=== PATIENT | male | born 1950 | race African-American/Black ===

== ENCOUNTER 2016-07-24 20:03 | Inpatient (IN) | payer OTHER, MEDICARE ==
[~2016-07-24] VITALS: Ht 177.8 cm; Wt 87.3 kg
[~2016-07-24 20:03] MED LIST: ACTONEL35 MG PO; ALENDRONATE SOD70 MG PO; ALEVE220 MG PO; AMIODARONE HCL200 MG PO; ASPIR 8181 M1 PO; Aspirin E.C. PO; BACTRIM,SEPT1 TABLET PO; CALCITRIOL0.25 MC1 PO; CALCITRIOL0.25 MCG PO; CALCIUM CITRAT200 MG PO; CALCIUM-MAGNES1 EA10 PO; CEFTIN500 MG PO; CYANOCOBALAM1000 MCG PO; CYMBALTA60 MG PO; Cipro PO; Cordarone, Pacerone PO; Cymbalta PO; DAILY MULTIPLE1 EACH PO; HYDROCHLOROTHIA25 MG PO; HYDROCODON-ACE1 EAC7 PO; K-DUR20 MEQ PO; K-Dur PO; KLOR-CON M2020 MEQ PO; KLOR-CON20 MEQ PO; LEVAQUIN500 MG PO; LOVENOX40 MG/0.4 SC; LYRICA50 MG PO; Levaquin PO; PLAVIX75 MG PO; PREDNISONE20 MG PO; RYTHMOL225 MG PO; TAMSULOSIN HCL0.4 MG PO; TYLENOL WITH C1 EACH PO; VIBRAMYCIN100 MG PO; VITAMIN A AND D PO
[2016-07-24 20:50] LABS: ADD MIUA? YES; BILIRUBIN NEGATIVE; BLOOD MODERATE; COLOR AMBER ((YELLOW)); GLUCOSE (STRIP) NEGATIVE; KETONES NEGATIVE; LEUKOCYTES SMALL; NITRITE POSITIVE; PROTEIN (STRIP) 100; SPECIFIC GRAVITY 1.013 (1.000-1.030)
[2016-07-24 21:21] LABS: BACTERIA 2+ /HPF; CASTS NONE SEEN /LPF; CRYSTALS NONE SEEN; EPITHELIAL CELLS RARE /HPF; MUCUS NONE SEEN /LPF; UCUL ADDED? YES; WHITE BLOOD CELLS TNTC /HPF (0-5)
[2016-07-24 22:17] LABS: PLATELET COUNT 68 K/uL (156-360)
[2016-07-24 22:20] LABS: CHLORIDE 113 mEq/L (99-109); SODIUM 143 mEq/L (136-147)
[2016-07-24 22:22] LABS: GLUCOSE 87 mg/dL (70-99)
[2016-07-24 22:23] LABS: ANION GAP 9 MEQ/L (2-14)
[2016-07-24 22:24] LABS: TOTAL BILIRUBIN 1.6 mg/dL (0.0-1.0)
[2016-07-24 22:25] LABS: ALKALINE PHOSPHATASE 298 IU/L (3-129)
[2016-07-24 22:26] LABS: GFR ESTIMATE (CALCULATED) > 59 mL/min/; POTASSIUM 2.3 mEq/L (3.7-5.4)
[2016-07-24 22:27] LABS: UREA NITROGEN (BUN) 21 mg/dL (9-23)
[2016-07-24 22:55] LABS: HEMATOCRIT 25.1 % (38.0-50.0); MCH 34.1 PG (29.0-34.0); MCHC 30.7 G/DL (30.0-36.0); MCV 111.1 FL (86-99); RBC DIS.WIDTH-CV 15.4 % (11.8-14.6); RBC DIS.WIDTH-SD 61.6 % (39-53); RED BLOOD COUNT 2.26 M/uL (4.00-5.50); WHITE BLOOD COUNT 3.7 K/uL (4.1-10.2)
[2016-07-25] VITALS (14 sets, daily range): BP systolic 70–93; BP diastolic 50–60
[2016-07-25] MEDS ORDERED: PYRIDIUM100 MG PO (05:18)
[2016-07-25] MEDS ORDERED: NITROFURANTOIN100 MG PO (05:19)
[2016-07-25 07:51] LABS: POINT-OF-CARE METER ID UU13113781; POINT-OF-CARE USER ID NUTSLF44
[2016-07-25 11:09] LABS: ANION GAP 7 MEQ/L (2-14); CHLORIDE 115 MEQ/L (99-109); SAMPLE HEMOLYSIS CHECK 0; SAMPLE ICTERIC CHECK 0; SAMPLE LIPEMIA CHECK 0; SODIUM 141 MEQ/L (136-147)
[2016-07-25 11:10] LABS: POTASSIUM 2.9 MEQ/L (3.7-5.4)
[2016-07-25 11:14] LABS: GFR ESTIMATE (CALCULATED) > 59 mL/min/; GLUCOSE 80 mg/dL (70-99); UREA NITROGEN (BUN) 18 mg/dL (9-23)
[2016-07-25 11:46] LABS: POINT-OF-CARE METER ID UU13113781; POINT-OF-CARE USER ID NUTSLF44
[2016-07-25 12:16] LABS: EOSINOPHIL (%) 1.5 % (0-5); HEMATOCRIT 22.9 % (38.0-50.0); IMMATURE GRANULOCYTE (%) 0.4 % (0.0-0.7); INSTRUMENT ABS NEUTROPHIL CT 1.8 K/uL; LYMPHOCYTE COUNT 0.6 K/uL (1.0-2.8); MCH 33.5 PG (29.0-34.0); MCHC 29.7 G/DL (30.0-36.0); MCV 112.8 FL (86-99); MEAN PLAT.VOLUME 11.5 uM^3 (9.0-12.4); MONOCYTE (%) 5.6 % (3-12); MONOCYTE COUNT 0.2 K/uL (0-0.8); NEUTROPHIL (%) 69.2 % (45-76); NEUTROPHIL COUNT 1.8 K/uL (1.8-6.4); PLATELET COUNT 52 K/uL (156-360); RBC DIS.WIDTH-CV 15.6 % (11.8-14.6); RBC DIS.WIDTH-SD 64.8 % (39-53); RED BLOOD COUNT 2.03 M/uL (4.00-5.50); WHITE BLOOD COUNT 2.7 K/uL (4.1-10.2)
[2016-07-25 16:52] LABS: POINT-OF-CARE USER ID NUTSLF44
[2016-07-25 21:02] LABS: POINT-OF-CARE METER ID UU13113781; POINT-OF-CARE USER ID ENVMNS
[2016-07-26 04:00] VITALS: BP 85/51
[2016-07-26 06:53] LABS: EOSINOPHIL (%) 1.2 % (0-5); HEMATOCRIT 27.1 % (38.0-50.0); INSTRUMENT ABS NEUTROPHIL CT 1.6 K/uL; LYMPHOCYTE COUNT 0.6 K/uL (1.0-2.8); MCH 33.1 PG (29.0-34.0); MCHC 30.3 G/DL (30.0-36.0); MCV 109.3 FL (86-99); MEAN PLAT.VOLUME 11.1 uM^3 (9.0-12.4); MONOCYTE (%) 7.3 % (3-12); MONOCYTE COUNT 0.2 K/uL (0-0.8); NEUTROPHIL (%) 66.3 % (45-76); NEUTROPHIL COUNT 1.6 K/uL (1.8-6.4); PLATELET COUNT 57 K/uL (156-360); RBC DIS.WIDTH-CV 18.9 % (11.8-14.6); RBC DIS.WIDTH-SD 75.1 % (39-53); WHITE BLOOD COUNT 2.5 K/uL (4.1-10.2)
[2016-07-26 06:57] LABS: RED BLOOD COUNT 2.48 M/uL (4.00-5.50)
[2016-07-26 08:30] VITALS: BP 92/65
[2016-07-26 08:34] LABS: POINT-OF-CARE USER ID NUTSLF44
[2016-07-26 09:38] LABS: CHLORIDE 119 mEq/L (99-109); POTASSIUM 3.4 mEq/L (3.7-5.4); SODIUM 142 mEq/L (136-147)
[2016-07-26 09:40] LABS: GLUCOSE 64 mg/dL (70-99)
[2016-07-26 09:41] LABS: ANION GAP 6 MEQ/L (2-14)
[2016-07-26 09:44] LABS: GFR ESTIMATE (CALCULATED) > 59 mL/min/
[2016-07-26 09:45] LABS: UREA NITROGEN (BUN) 18 mg/dL (9-23)
[2016-07-26 11:41] LABS: POINT-OF-CARE USER ID NUTSLF44
[2016-07-26 12:00] VITALS: BP 89/65
[2016-07-26 17:00] LABS: POINT-OF-CARE METER ID UU13113781; POINT-OF-CARE USER ID NUTSLF44
[2016-07-26 18:12] VITALS: BP 102/64
[2016-07-26 19:10] VITALS: BP 80/54
[2016-07-27 00:26] VITALS: BP 88/53
[2016-07-27 04:00] VITALS: BP 88/60
[2016-07-27 07:45] VITALS: BP 100/66
[2016-07-27 07:52] LABS: EOSINOPHIL (%) 1.7 % (0-5); HEMATOCRIT 28.3 % (38.0-50.0); IMMATURE GRANULOCYTE (%) 0.4 % (0.0-0.7); INSTRUMENT ABS NEUTROPHIL CT 1.5 K/uL; LYMPHOCYTE COUNT 0.6 K/uL (1.0-2.8); MCH 33.2 PG (29.0-34.0); MCHC 30.4 G/DL (30.0-36.0); MCV 109.3 FL (86-99); MEAN PLAT.VOLUME 10.5 uM^3 (9.0-12.4); MONOCYTE (%) 5.6 % (3-12); MONOCYTE COUNT 0.1 K/uL (0-0.8); NEUTROPHIL (%) 65.4 % (45-76); NEUTROPHIL COUNT 1.5 K/uL (1.8-6.4); PLATELET COUNT 51 K/uL (156-360); RBC DIS.WIDTH-CV 18.3 % (11.8-14.6); RBC DIS.WIDTH-SD 74.2 % (39-53); RED BLOOD COUNT 2.59 M/uL (4.00-5.50); WHITE BLOOD COUNT 2.3 K/uL (4.1-10.2)
[2016-07-27 08:06] LABS: ANION GAP 4 MEQ/L (2-14); CHLORIDE 119 MEQ/L (99-109); GFR ESTIMATE (CALCULATED) > 59 mL/min/; GLUCOSE 73 mg/dL (70-99); SAMPLE HEMOLYSIS CHECK 0; SAMPLE ICTERIC CHECK 0; SAMPLE LIPEMIA CHECK 0; SODIUM 142 MEQ/L (136-147); UREA NITROGEN (BUN) 16 mg/dL (9-23)
[2016-07-27 11:23] VITALS: BP 81/52
[2016-07-27 16:28] VITALS: BP 92/53
[2016-07-27 19:15] VITALS: BP 84/52
[2016-07-28] VITALS (8 sets, daily range): BP systolic 83–119; BP diastolic 51–73
[2016-07-28 05:52] LABS: EOSINOPHIL (%) 1.7 % (0-5); HEMATOCRIT 27.8 % (38.0-50.0); INSTRUMENT ABS NEUTROPHIL CT 1.5 K/uL; LYMPHOCYTE COUNT 0.6 K/uL (1.0-2.8); MCH 32.4 PG (29.0-34.0); MCHC 29.5 G/DL (30.0-36.0); MCV 109.9 FL (86-99); MEAN PLAT.VOLUME 11.3 uM^3 (9.0-12.4); MONOCYTE (%) 5.2 % (3-12); MONOCYTE COUNT 0.1 K/uL (0-0.8); NEUTROPHIL (%) 65.9 % (45-76); NEUTROPHIL COUNT 1.5 K/uL (1.8-6.4); PLATELET COUNT 53 K/uL (156-360); RBC DIS.WIDTH-CV 17.5 % (11.8-14.6); RBC DIS.WIDTH-SD 71.9 % (39-53); RED BLOOD COUNT 2.53 M/uL (4.00-5.50); WHITE BLOOD COUNT 2.3 K/uL (4.1-10.2)
[2016-07-28 06:28] LABS: ANION GAP 6 MEQ/L (2-14); CHLORIDE 119 MEQ/L (99-109); GFR ESTIMATE (CALCULATED) > 59 mL/min/; GLUCOSE 72 mg/dL (70-99); POTASSIUM 4.2 MEQ/L (3.7-5.4); SAMPLE HEMOLYSIS CHECK 0; SAMPLE ICTERIC CHECK 0; SAMPLE LIPEMIA CHECK 0; SODIUM 142 MEQ/L (136-147); UREA NITROGEN (BUN) 16 mg/dL (9-23)
== END 2016-07-28 19:26 | disposition home or self-care (01) | DRG 690 ==
LOC: EME 20:03 → 4EAST 07-25 02:35 → EDOF 07-25 02:35 → 4EAST 07-25 04:17
PROVIDERS: Family Medicine Sports Medicine; Physician Assistant; Specialist
PROC: 30233R1 Transfusion of Nonautologous Platelets into Peripheral Vein, Percutaneous Approach (ICD-10-PCS; principal; 2016-07-25)
PROC: 30233N1 Transfusion of Nonautologous Red Blood Cells into Peripheral Vein, Percutaneous Approach (ICD-10-PCS; principal; 2016-07-25)
DX: N39.0 Urinary tract infection, site not specified (principal); D61.818 Other pancytopenia; E87.6 Hypokalemia; R31.9 Hematuria, unspecified; K21.9 Gastro-esophageal reflux disease without esophagitis; I49.5 Sick sinus syndrome; I25.10 Atherosclerotic heart disease of native coronary artery without angina pectoris; I48.2 Chronic atrial fibrillation; F32.9 Major depressive disorder, single episode, unspecified; E66.01 Morbid (severe) obesity due to excess calories; E11.9 Type 2 diabetes mellitus without complications; I10 Essential (primary) hypertension; N40.0 Benign prostatic hyperplasia without lower urinary tract symptoms; I95.9 Hypotension, unspecified; D69.6 Thrombocytopenia, unspecified; D72.819 Decreased white blood cell count, unspecified; E83.51 Hypocalcemia; Z98.84 Bariatric surgery status; Z87.891 Personal history of nicotine dependence; Z88.0 Allergy status to penicillin; Z88.1 Allergy status to other antibiotic agents; Z95.0 Presence of cardiac pacemaker
CPT/HCPCS: 74177; 80048; 80053; 80202; 81003; 82948; 83605; 85025; 85027; 85049; 86850; 86900; 86901; 86920; 87040; 87077; 87086; 87186; 93005; 99281; 99285; J0696; J3370; J3480; J7030; J7050; P9016; P9035

== ENCOUNTER → 2016-10-08 | Outpatient (CLI) | payer OTHER, MEDICARE ==
[~2016-10-08] VITALS: Ht 175.3 cm; Wt 83.9 kg
[~2016-10-08] MED LIST changes: +ALDACTONE25 MG PO; +LASIX20 MG PO; +NITROFURANTOIN100 MG PO; +PYRIDIUM100 MG PO
[2016-10-08 14:54] LABS: HEMATOCRIT 27.7 % (38.0-50.0); MCH 32.5 PG (29.0-34.0); MCHC 31.4 G/DL (30.0-36.0); MCV 103.4 FL (86-99); MEAN PLAT.VOLUME 10.5 uM^3 (9.0-12.4); PLATELET COUNT 57 K/uL (156-360); RBC DIS.WIDTH-SD 57.1 % (39-53); RED BLOOD COUNT 2.68 M/uL (4.00-5.50); WHITE BLOOD COUNT 2.4 K/uL (4.1-10.2)
== END | disposition home or self-care (01) ==
LOC: AMB 13:59
PROVIDERS: Anesthesiology
DX: K22.8 Other specified diseases of esophagus (principal); I85.10 Secondary esophageal varices without bleeding; K29.70 Gastritis, unspecified, without bleeding; K75.81 Nonalcoholic steatohepatitis (NASH); K74.69 Other cirrhosis of liver; D69.6 Thrombocytopenia, unspecified; D64.9 Anemia, unspecified; I10 Essential (primary) hypertension; Z86.19 Personal history of other infectious and parasitic diseases; Z98.84 Bariatric surgery status; E66.3 Overweight; Z68.26 Body mass index [BMI] 26.0-26.9, adult; Z87.891 Personal history of nicotine dependence; Z95.0 Presence of cardiac pacemaker; Z88.0 Allergy status to penicillin
CPT/HCPCS: 84132; 85027; J3010

== ENCOUNTER 2016-10-19 17:09 | Emergency (ER) | payer OTHER, MEDICARE ==
[~2016-10-19] VITALS: Ht 177.8 cm; Wt 88.4 kg
[2016-10-19 17:56] LABS: ADD MIUA? YES; BILIRUBIN NEGATIVE; BLOOD MODERATE; COLOR YELLOW ((YELLOW)); GLUCOSE (STRIP) NEGATIVE; KETONES NEGATIVE; LEUKOCYTES LARGE; NITRITE POSITIVE; PROTEIN (STRIP) 30; SPECIFIC GRAVITY 1.011 (1.000-1.030); UROBILINOGEN 0.2 MG/DL (0.2-1.0)
[2016-10-19 18:36] LABS: BACTERIA 2+ /HPF; EPITHELIAL CELLS NONE SEEN /HPF; MUCUS NONE SEEN /LPF; RED BLOOD CELLS RARE /HPF (0-5); UCUL ADDED? YES
[2016-10-19 20:15] LABS: HEMATOCRIT 28.7 % (38.0-50.0); MCV 103.2 FL (86-99); RBC DIS.WIDTH-CV 13.9 % (11.8-14.6); RBC DIS.WIDTH-SD 53.1 % (39-53); RED BLOOD COUNT 2.78 M/uL (4.00-5.50)
[2016-10-19 20:24] LABS: CHLORIDE 118 mEq/L (99-109); POTASSIUM 3.4 mEq/L (3.7-5.4); SODIUM 142 mEq/L (136-147)
[2016-10-19 20:26] LABS: GLUCOSE 76 mg/dL (70-99)
[2016-10-19 20:28] LABS: ANION GAP 2 MEQ/L (2-14); TOTAL BILIRUBIN 0.7 mg/dL (0.0-1.0)
[2016-10-19 20:30] LABS: ALKALINE PHOSPHATASE 236 IU/L (3-129); GFR ESTIMATE (CALCULATED) > 59 mL/min/
[2016-10-19 20:31] LABS: UREA NITROGEN (BUN) 12 mg/dL (9-23)
[2016-10-19 21:01] LABS: IMM.PLATELET FRACTION 5.2 (1-7); MEAN PLAT.VOLUME 11.5 uM^3 (9.0-12.4); PLAT.SUFFICIENCY VERY DECREASED; PLATELET COUNT 45 K/uL (156-360)
[2016-10-19] MEDS ORDERED: BACTRIM,SEPT1 TABLET PO (22:36)
[2016-10-19 23:08] VITALS: BP 96/64
== END 2016-10-19 23:07 | disposition home or self-care (01) ==
LOC: EME 17:09
PROVIDERS: Physician Assistant
DX: N49.2 Inflammatory disorders of scrotum (principal); N39.0 Urinary tract infection, site not specified; D61.818 Other pancytopenia; M81.0 Age-related osteoporosis without current pathological fracture; Z87.442 Personal history of urinary calculi; Z88.0 Allergy status to penicillin; Z87.891 Personal history of nicotine dependence; Z98.84 Bariatric surgery status
CPT/HCPCS: 76870; 80053; 81003; 85027; 87086; 99281; 99284; J0696

== ENCOUNTER 2017-03-29 22:44 | Inpatient (IN) | payer OTHER, MEDICARE ==
[~2017-03-29] VITALS: Ht 177.8 cm; Wt 87.5 kg
[2017-03-29 23:12] LABS: HEMATOCRIT 24.6 % (38.0-50.0); MCH 32.5 PG (29.0-34.0); MCHC 31.3 G/DL (30.0-36.0); MCV 103.8 FL (86-99); RBC DIS.WIDTH-CV 14.9 % (11.8-14.6); RBC DIS.WIDTH-SD 55.8 % (39-53); RED BLOOD COUNT 2.37 M/uL (4.00-5.50); WHITE BLOOD COUNT 3.1 K/uL (4.1-10.2)
[2017-03-29 23:23] LABS: CHLORIDE 115 mEq/L (99-109); POTASSIUM 3.4 mEq/L (3.7-5.4); SODIUM 141 mEq/L (136-147)
[2017-03-29 23:26] LABS: GLUCOSE 91 mg/dL (70-99)
[2017-03-29 23:27] LABS: ANION GAP 8 MEQ/L (2-14)
[2017-03-29 23:28] LABS: TOTAL BILIRUBIN 1.3 mg/dL (0.0-1.0)
[2017-03-29 23:29] LABS: ALKALINE PHOSPHATASE 249 IU/L (3-129); GFR ESTIMATE (CALCULATED) > 59 mL/min/
[2017-03-29 23:30] LABS: UREA NITROGEN (BUN) 15 mg/dL (9-23)
[2017-03-29 23:48] LABS: LIPASE 45 U/L (1.0-51.0)
[2017-03-30] VITALS (12 sets, daily range): BP systolic 79–108; BP diastolic 52–67
[2017-03-30 00:55] LABS: IMM.PLATELET FRACTION 5.4 (1-7); MEAN PLAT.VOLUME 11.5 uM^3 (9.0-12.4); PLAT.SUFFICIENCY DECREASED; PLATELET COUNT 40 K/uL (156-360)
[2017-03-30 01:34] LABS: ADD MIUA? YES; BILIRUBIN NEGATIVE; BLOOD MODERATE; COLOR YELLOW ((YELLOW)); GLUCOSE (STRIP) NEGATIVE; KETONES NEGATIVE; LEUKOCYTES LARGE; NITRITE POSITIVE; PROTEIN (STRIP) NEGATIVE; UROBILINOGEN 0.2 MG/DL (0.2-1.0)
[2017-03-30 01:47] LABS: BACTERIA 1+ /HPF; EPITHELIAL CELLS RARE /HPF; MUCUS TRACE /LPF; UCUL ADDED? YES; WHITE BLOOD CELLS 15-20 /HPF (0-5)
[2017-03-30] MEDS ORDERED: FINASTERIDE5 MG PO (11:31)
[2017-03-30] MEDS ORDERED: TRAMADOL HCL50 MG PO (11:33)
[2017-03-30] MEDS ORDERED: CALCIUM + D PO (11:34)
[2017-03-30 17:52] LABS: C DIFF TOXIN NEGATIVE (NEGATIVE)
[2017-03-30 17:55] LABS: PROBE CHECK PASS; SPECIMEN PROCESSING CONTROL PASS
[2017-03-30 19:47] LABS: HEMATOCRIT 25.5 % (38.0-50.0); IMM.RETIC FRACTION 14.8 % (3-19); MCH 31.9 PG (29.0-34.0); MCHC 31.4 G/DL (30.0-36.0); MCV 101.6 FL (86-99); RBC DIS.WIDTH-CV 17.6 % (11.8-14.6); RBC DIS.WIDTH-SD 66.1 % (39-53); RED BLOOD COUNT 2.51 M/uL (4.00-5.50); RETIC HGB EQUIVALENT 31.9 (28-36); WHITE BLOOD COUNT 2.3 K/uL (4.1-10.2)
[2017-03-30 19:58] LABS: INTER. NORMALIZED RATIO 1.6; PROTHROMBIN TIME 18.6 SEC (10.2-12.9)
[2017-03-30 20:01] LABS: PTT 31.4 SEC (25-37)
[2017-03-30 20:12] LABS: TROP-I INTERPRETATION NEGATIVE; TROPONIN-I 0.02 ng/mL (0.0-0.30)
[2017-03-30 20:17] LABS: IMM.PLATELET FRACTION 3.8 (1-7); MEAN PLAT.VOLUME 11.6 uM^3 (9.0-12.4); PLAT.SUFFICIENCY DECREASED; PLATELET COUNT 37 K/uL (156-360)
[2017-03-30 20:30] LABS: FERRITIN 48 NG/ML (22-322)
[2017-03-30 21:27] LABS: CREATINE KINASE 82 IU/L (1-294); IRON 45 MCG/DL (35-150)
[2017-03-31] VITALS (15 sets, daily range): BP systolic 63–120; BP diastolic 40–67
[2017-03-31 07:13] LABS: EOSINOPHIL (%) 1.1 % (0-5); HEMATOCRIT 25.1 % (38.0-50.0); IMMATURE GRANULOCYTE (%) 0.6 % (0.0-0.7); INSTRUMENT ABS NEUTROPHIL CT 1.2 K/uL; LYMPHOCYTE COUNT 0.4 K/uL (1.0-2.8); MCH 31.6 PG (29.0-34.0); MCHC 31.5 G/DL (30.0-36.0); MCV 100.4 FL (86-99); MONOCYTE (%) 11.2 % (3-12); MONOCYTE COUNT 0.2 K/uL (0-0.8); NEUTROPHIL (%) 65.7 % (45-76); NEUTROPHIL COUNT 1.2 K/uL (1.8-6.4); RBC DIS.WIDTH-CV 17.4 % (11.8-14.6); RBC DIS.WIDTH-SD 65.2 % (39-53); WHITE BLOOD COUNT 1.8 K/uL (4.1-10.2)
[2017-03-31 07:30] LABS: ANION GAP 6 MEQ/L (2-14); CHLORIDE 115 MEQ/L (99-109); GFR ESTIMATE (CALCULATED) > 59 mL/min/; GLUCOSE 78 mg/dL (70-99); POTASSIUM 3.3 MEQ/L (3.7-5.4); SAMPLE HEMOLYSIS CHECK 0; SAMPLE ICTERIC CHECK 0; SAMPLE LIPEMIA CHECK 0; SODIUM 140 MEQ/L (136-147); UREA NITROGEN (BUN) 15 mg/dL (9-23)
[2017-03-31 07:32] LABS: IMM.PLATELET FRACTION 4.4 (1-7); PLAT.SUFFICIENCY VERY DECREASED; PLATELET COUNT 37 K/uL (156-360)
[2017-03-31 17:40] LABS: HEMATOCRIT 28.4 % (38.0-50.0); MCH 32.2 PG (29.0-34.0); MCV 100.4 FL (86-99); NRBC (%) 1.3 /100 WBC (0-0); RBC DIS.WIDTH-CV 17.5 % (11.8-14.6); RBC DIS.WIDTH-SD 64.8 % (39-53); RED BLOOD COUNT 2.83 M/uL (4.00-5.50); WHITE BLOOD COUNT 2.2 K/uL (4.1-10.2)
[2017-03-31 17:51] LABS: ANION GAP 3 MEQ/L (2-14); CHLORIDE 116 MEQ/L (99-109); POTASSIUM 3.6 MEQ/L (3.7-5.4); SAMPLE HEMOLYSIS CHECK 0; SAMPLE ICTERIC CHECK 0; SAMPLE LIPEMIA CHECK 0; SODIUM 140 MEQ/L (136-147)
[2017-03-31 17:57] LABS: GFR ESTIMATE (CALCULATED) > 59 mL/min/; GLUCOSE 78 mg/dL (70-99); UREA NITROGEN (BUN) 13 mg/dL (9-23)
[2017-03-31 18:06] LABS: BASE EXCESS -8.1 mEq/L (-3 to +3); BICARBONATE 16.7 mEq/L (22-26); CARBOXY HGB 2.1 % (0-5); DEVICE NRBM; FI02 100 %; METHEMOGLOBIN 1.6 % (0-1.5); O2 FLOW 15 L/MIN; PCO2 31 mm Hg (35-45); PO2 334 mm Hg (80-100); SITE RBRACHIAL; TOTAL RESP RATE 24 resp/min; pH 7.34 (7.35-7.45)
[2017-03-31 18:14] LABS: HEMATOLOGY COMMENT 1 SN; IMM.PLATELET FRACTION 5.4 (1-7); MEAN PLAT.VOLUME 11.7 uM^3 (9.0-12.4); PLAT.SUFFICIENCY VERY DECREASED; PLATELET COUNT 42 K/uL (156-360)
[2017-03-31 18:21] LABS: POINT-OF-CARE METER ID UU14117124
[2017-03-31 18:21] LABS: POINT-OF-CARE METER ID UU14117124
[2017-03-31 18:46] LABS: ANION GAP 8 MEQ/L (2-14); CHLORIDE 113 MEQ/L (99-109); POTASSIUM 4.2 MEQ/L (3.7-5.4); SAMPLE HEMOLYSIS CHECK 0; SAMPLE ICTERIC CHECK 0; SAMPLE LIPEMIA CHECK 0; SODIUM 139 MEQ/L (136-147); TOTAL BILIRUBIN 1.3 MG/DL (0.0-1.0); TROP-I INTERPRETATION NEGATIVE; TROPONIN-I 0.02 ng/mL (0.0-0.30)
[2017-03-31 18:52] LABS: ALKALINE PHOSPHATASE 223 IU/L (3-129); GFR ESTIMATE (CALCULATED) > 59 mL/min/; UREA NITROGEN (BUN) 13 mg/dL (9-23)
[2017-03-31 18:53] LABS: GLUCOSE 171 mg/dL (70-99)
[2017-03-31 20:19] LABS: METH RESISTANT S AUREUS PCR NEGATIVE (NEGATIVE)
[2017-03-31 20:26] LABS: PROBE CHECK PASS; SPECIMEN PROCESSING CONTROL PASS
[2017-04-01] VITALS (27 sets, daily range): BP systolic 75–109; BP diastolic 53–77
[2017-04-01 05:27] LABS: INTER. NORMALIZED RATIO 1.4; PROTHROMBIN TIME 16.2 SEC (10.2-12.9)
[2017-04-01 05:28] LABS: POINT-OF-CARE METER ID UU14314082; POINT-OF-CARE USER ID PHATLC
[2017-04-01 05:29] LABS: PTT 29.5 SEC (25-37)
[2017-04-01 05:35] LABS: EOSINOPHIL (%) 1.3 % (0-5); HEMATOCRIT 26.7 % (38.0-50.0); INSTRUMENT ABS NEUTROPHIL CT 0.9 K/uL; LYMPHOCYTE COUNT 0.5 K/uL (1.0-2.8); MCHC 31.1 G/DL (30.0-36.0); MCV 99.6 FL (86-99); MONOCYTE (%) 12.7 % (3-12); MONOCYTE COUNT 0.2 K/uL (0-0.8); NEUTROPHIL (%) 56.7 % (45-76); NEUTROPHIL COUNT 0.9 K/uL (1.8-6.4); RBC DIS.WIDTH-CV 17.2 % (11.8-14.6); RBC DIS.WIDTH-SD 63.2 % (39-53); RED BLOOD COUNT 2.68 M/uL (4.00-5.50)
[2017-04-01 05:47] LABS: ANION GAP 4 MEQ/L (2-14); CHLORIDE 118 MEQ/L (99-109); GFR ESTIMATE (CALCULATED) > 59 mL/min/; POTASSIUM 3.7 MEQ/L (3.7-5.4); SAMPLE HEMOLYSIS CHECK 0; SAMPLE ICTERIC CHECK 0; SAMPLE LIPEMIA CHECK 0; SODIUM 142 MEQ/L (136-147); UREA NITROGEN (BUN) 13 mg/dL (9-23)
[2017-04-01 05:57] LABS: GLUCOSE 79 mg/dL (70-99)
[2017-04-01 06:05] LABS: IMM.PLATELET FRACTION 4.7 (1-7); MEAN PLAT.VOLUME 11.8 uM^3 (9.0-12.4); PLAT.SUFFICIENCY VERY DECREASED; PLATELET COUNT 40 K/uL (156-360)
[2017-04-01 06:57] LABS: WHITE BLOOD COUNT 1.6 K/uL (4.1-10.2)
[2017-04-01 10:10] LABS: TROP-I INTERPRETATION NEGATIVE; TROPONIN-I 0.09 ng/mL (0.0-0.30)
[2017-04-02] VITALS (14 sets, daily range): BP systolic 87–106; BP diastolic 57–79
[2017-04-02 06:29] LABS: HEMATOCRIT 29.6 % (38.0-50.0); MCH 30.7 PG (29.0-34.0); MCHC 30.4 G/DL (30.0-36.0); RBC DIS.WIDTH-SD 63.4 % (39-53); RED BLOOD COUNT 2.93 M/uL (4.00-5.50)
[2017-04-02 06:36] LABS: ANION GAP 5 MEQ/L (2-14); CHLORIDE 118 MEQ/L (99-109); GFR ESTIMATE (CALCULATED) > 59 mL/min/ (58.99-99999); GLUCOSE 73 mg/dL (70-99); POTASSIUM 4.4 MEQ/L (3.7-5.4); SAMPLE HEMOLYSIS CHECK 0; SAMPLE ICTERIC CHECK 0; SAMPLE LIPEMIA CHECK 0; SODIUM 142 MEQ/L (136-147); UREA NITROGEN (BUN) 10 mg/dL (9-23)
[2017-04-02 06:41] LABS: WHITE BLOOD COUNT 1.8 K/uL (4.1-10.2)
[2017-04-02 07:25] LABS: IMM.PLATELET FRACTION 4.9 (1-7); MEAN PLAT.VOLUME 10.9 uM^3 (9.0-12.4); PLAT.SUFFICIENCY VERY DECREASED; PLATELET COUNT 46 K/uL (156-360)
[2017-04-03 00:07] VITALS: BP 116/74
[2017-04-03 04:14] VITALS: BP 107/56
[2017-04-03 07:15] LABS: ANION GAP 4 MEQ/L (2-14); CHLORIDE 117 MEQ/L (99-109); GFR ESTIMATE (CALCULATED) > 59 mL/min/ (58.99-99999); POTASSIUM 4.4 MEQ/L (3.7-5.4); SAMPLE HEMOLYSIS CHECK 2; SAMPLE ICTERIC CHECK 0; SAMPLE LIPEMIA CHECK 0; SODIUM 140 MEQ/L (136-147); UREA NITROGEN (BUN) 8 mg/dL (9-23)
[2017-04-03 07:16] LABS: GLUCOSE 93 mg/dL (70-99)
[2017-04-03 07:45] LABS: EOSINOPHIL (%) 1.9 % (0-5); HEMATOCRIT 28.9 % (38.0-50.0); LYMPHOCYTE COUNT 0.4 K/uL (1.0-2.8); MCH 31.6 PG (29.0-34.0); MCHC 30.8 G/DL (30.0-36.0); MCV 102.5 FL (86-99); MONOCYTE (%) 9.7 % (3-12); MONOCYTE COUNT 0.2 K/uL (0-0.8); RBC DIS.WIDTH-SD 63.8 % (39-53); RED BLOOD COUNT 2.82 M/uL (4.00-5.50)
[2017-04-03 07:59] LABS: WHITE BLOOD COUNT 1.6 K/uL (4.1-10.2)
[2017-04-03 08:00] VITALS: BP 100/67
[2017-04-03 08:46] LABS: IMM.PLATELET FRACTION 3.9 (1-7); MEAN PLAT.VOLUME 11.5 uM^3 (9.0-12.4); PLAT.SUFFICIENCY DECREASED; PLATELET COUNT 46 K/uL (156-360)
[2017-04-03 11:10] VITALS: BP 92/60
[2017-04-03 15:45] VITALS: BP 110/69
[2017-04-03] MEDS ORDERED: TYLENOL REGULA325 MG PO (16:03)
[2017-04-03] MEDS ORDERED: PANTOPRAZOLE SO40 MG PO (16:04)
== END 2017-04-03 19:03 | disposition home or self-care (01) | DRG 871 ==
LOC: EME → EDBD 22:44 → EME 22:44 → 4WEST 03-30 04:22 → EDOF 03-30 04:22 → 3EAST 03-30 04:22 → ENRESERV 03-30 04:25 → 3EAST 03-30 05:31 → 4WEST 03-31 18:08 → ENRESERV 04-02 10:16 → 3EAST 04-02 15:51
PROVIDERS: Emergency Medicine; Family Medicine; Family Medicine Sports Medicine; Internal Medicine; Specialist
PROC: 30233N1 Transfusion of Nonautologous Red Blood Cells into Peripheral Vein, Percutaneous Approach (ICD-10-PCS; principal; 2017-03-30)
PROC: 30233R1 Transfusion of Nonautologous Platelets into Peripheral Vein, Percutaneous Approach (ICD-10-PCS; 2017-03-31)
PROC: 0DJ08ZZ Inspection of Upper Intestinal Tract, Via Natural or Artificial Opening Endoscopic (ICD-10-PCS; 2017-04-01)
DX: A41.9 Sepsis, unspecified organism (principal); N13.6 Pyonephrosis; B96.20 Unspecified Escherichia coli [E. coli] as the cause of diseases classified elsewhere; K52.9 Noninfective gastroenteritis and colitis, unspecified; N17.9 Acute kidney failure, unspecified; J96.01 Acute respiratory failure with hypoxia; T80.89XA Other complications following infusion, transfusion and therapeutic injection, initial encounter; L29.9 Pruritus, unspecified; Y84.8 Other medical procedures as the cause of abnormal reaction of the patient, or of later complication, without mention of misadventure at the time of the procedure; F43.0 Acute stress reaction; E87.2 Acidosis; E87.6 Hypokalemia; D61.818 Other pancytopenia; E86.0 Dehydration; I12.9 Hypertensive chronic kidney disease with stage 1 through stage 4 chronic kidney disease, or unspecified chronic kidney disease; E11.22 Type 2 diabetes mellitus with diabetic chronic kidney disease; N18.9 Chronic kidney disease, unspecified; I48.91 Unspecified atrial fibrillation; M81.0 Age-related osteoporosis without current pathological fracture; N40.0 Benign prostatic hyperplasia without lower urinary tract symptoms; E78.5 Hyperlipidemia, unspecified; I25.10 Atherosclerotic heart disease of native coronary artery without angina pectoris; I48.2 Chronic atrial fibrillation; I85.00 Esophageal varices without bleeding; K21.9 Gastro-esophageal reflux disease without esophagitis; K29.00 Acute gastritis without bleeding; K74.69 Other cirrhosis of liver; K76.6 Portal hypertension; R18.8 Other ascites; R32 Unspecified urinary incontinence; E55.9 Vitamin D deficiency, unspecified; F32.9 Major depressive disorder, single episode, unspecified; I95.89 Other hypotension; R31.0 Gross hematuria; I95.9 Hypotension, unspecified; R15.9 Full incontinence of feces; K31.7 Polyp of stomach and duodenum; Z88.0 Allergy status to penicillin; Z88.1 Allergy status to other antibiotic agents; Z87.891 Personal history of nicotine dependence; Z95.0 Presence of cardiac pacemaker; Z98.84 Bariatric surgery status; Z90.79 Acquired absence of other genital organ(s); E66.9 Obesity, unspecified; Z68.27 Body mass index [BMI] 27.0-27.9, adult
CPT/HCPCS: 36415; 36600; 71010; 74177; 80048; 80048 91; 80053; 81003; 82330; 82550; 82607; 82728; 82746; 82803; 82948; 83036 GA; 83540; 83605; 83690; 84132 91; 84466; 84484; 85025; 85025 91; 85027; 85045; 85610; 85730; 86850; 86900; 86901; 86920; 87040; 87077; 87086; 87186; 87493; 87506; 87641; 93005; 99281; 99285; C9113; J0690; J0692; J1956; J2405; J3430; J3480; J7030; P9016; P9035; S0030

== ENCOUNTER 2017-06-17 09:48 | Inpatient (IN) | payer OTHER, MEDICARE ==
[2017-06-17] VITALS (7 sets, daily range): BP systolic 59–108; BP diastolic 31–73
[~2017-06-17] VITALS: Ht 172.7 cm; Wt 82.5 kg
[~2017-06-17 09:48] MED LIST changes: +CALCIUM 500 +1 EACH PO; +FINASTERIDE5 MG PO; +PANTOPRAZOLE SO40 MG PO; +TRAMADOL HCL50 MG PO; +TYLENOL REGULA325 MG PO
[2017-06-17 10:16] LABS: HEMATOCRIT 34.1 % (38.0-50.0); HEMOGLOBIN 10.7 G/DL (12.5-16.6); MCH 34.1 PG (29.0-34.0); MCHC 31.4 G/DL (30.0-36.0); MCV 108.6 FL (86-99); RBC DIS.WIDTH-CV 15.9 % (11.8-14.6); RBC DIS.WIDTH-SD 63.4 % (39-53); RED BLOOD COUNT 3.14 M/uL (4.00-5.50); WHITE BLOOD COUNT 7.9 K/uL (4.1-10.2)
[2017-06-17 10:18] LABS: PLATELET COUNT 98 K/uL (156-360)
[2017-06-17 10:24] LABS: ALBUMIN 3.3 g/dL (3.2-4.8); CHLORIDE 110 mEq/L (99-109); POTASSIUM 3.7 mEq/L (3.7-5.4); SODIUM 135 mEq/L (136-147)
[2017-06-17 10:26] LABS: GLUCOSE 107 mg/dL (70-99)
[2017-06-17 10:27] LABS: TOTAL PROTEIN 7.6 g/dL (6.4-8.3)
[2017-06-17 10:28] LABS: TOTAL BILIRUBIN 3.4 mg/dL (0.0-1.0)
[2017-06-17 10:30] LABS: ALKALINE PHOSPHATASE 219 IU/L (3-129); CREATININE 1.5 mg/dL (0.6-1.3); GFR ESTIMATE (CALCULATED) > 59 mL/min/ (58.99-99999)
[2017-06-17 10:31] LABS: UREA NITROGEN (BUN) 24 mg/dL (9-23)
[2017-06-17 10:32] LABS: AST (GOT) 21 IU/L (2-34)
[2017-06-17 10:33] LABS: ALT (GPT) 17 IU/L (3-49)
[2017-06-17 10:37] LABS: APPEARANCE TURBID ((CLEAR)); BILIRUBIN NEGATIVE; BLOOD LARGE; COLOR AMBER ((YELLOW)); GLUCOSE (STRIP) NEGATIVE; KETONES NEGATIVE; LEUKOCYTES MODERATE; NITRITE POSITIVE; PROTEIN (STRIP) 100
[2017-06-17 10:56] LABS: WHITE BLOOD CELLS TNTC /HPF (0-5)
[2017-06-17 10:57] LABS: BACTERIA 3+ /HPF; EPITHELIAL CELLS 1+ /HPF; MUCUS NONE SEEN /LPF; UCUL ADDED? YES
[2017-06-17] MEDS ORDERED: KEFLEX500 MG PO (14:26)
[2017-06-17] MEDS ORDERED: PROMETHAZINE HC25 M1 PO (14:28)
[2017-06-17 18:17] LABS: CHLORIDE 118 mEq/L (99-109); POTASSIUM 3.7 mEq/L (3.7-5.4); SODIUM 139 mEq/L (136-147)
[2017-06-17 18:19] LABS: GLUCOSE 91 mg/dL (70-99)
[2017-06-17 18:23] LABS: CREATININE 1.1 mg/dL (0.6-1.3); GFR ESTIMATE (CALCULATED) > 59 mL/min/ (58.99-99999)
[2017-06-17 18:24] LABS: UREA NITROGEN (BUN) 24 mg/dL (9-23)
[2017-06-17] MEDS ORDERED: PROTONIX20 MG PO (18:36)
[2017-06-17] MEDS ORDERED: ALDACTONE25 MG PO (18:37)
[2017-06-17] MEDS ORDERED: FOSAMAX70 MG PO (18:37)
[2017-06-17] MEDS ORDERED: FUROSEMIDE20 MG PO (18:37)
[2017-06-17 18:59] LABS: BASE EXCESS -9.7 mEq/L (-3 to +3); BICARBONATE 15.3 mEq/L (22-26); CARBOXY HGB 3.1 % (0-5); METHEMOGLOBIN 1.3 % (0-1.5); PCO2 29 mm Hg (35-45); PO2 138 mm Hg (80-100); SITE LR; pH 7.33 (7.35-7.45)
[2017-06-17 19:00] LABS: COMMENTS - BLOOD GASES C+A+; DEVICE NC; O2 FLOW 2 L/MIN
[2017-06-18] VITALS (26 sets, daily range): BP systolic 74–105; BP diastolic 44–73
[2017-06-18 05:04] LABS: ALBUMIN 2.4 g/dL (3.2-4.8); CHLORIDE 118 mEq/L (99-109)
[2017-06-18 05:05] LABS: POTASSIUM 3.6 mEq/L (3.7-5.4); SODIUM 139 mEq/L (136-147)
[2017-06-18 05:07] LABS: GLUCOSE 104 mg/dL (70-99)
[2017-06-18 05:10] LABS: GFR ESTIMATE (CALCULATED) > 59 mL/min/ (58.99-99999)
[2017-06-18 05:12] LABS: AST (GOT) 23 IU/L (2-34); UREA NITROGEN (BUN) 21 mg/dL (9-23)
[2017-06-18 05:13] LABS: ALT (GPT) 16 IU/L (3-49)
[2017-06-18 05:21] LABS: ALKALINE PHOSPHATASE 157 IU/L (3-129); TOTAL BILIRUBIN 1.4 mg/dL (0.0-1.0); TOTAL PROTEIN 5.3 g/dL (6.4-8.3)
[2017-06-18 05:42] LABS: BASOPHIL (%) 0.6 % (0-1); EOSINOPHIL (%) 0.9 % (0-5); HEMATOCRIT 27.1 % (38.0-50.0); HEMOGLOBIN 8.3 G/DL (12.5-16.6); IMMATURE GRANULOCYTE (%) 0.6 % (0.0-0.7); LYMPHOCYTE (%) 11.4 % (15-42); LYMPHOCYTE COUNT 0.4 K/uL (1.0-2.8); MCH 33.6 PG (29.0-34.0); MCHC 30.6 G/DL (30.0-36.0); MCV 109.7 FL (86-99); MONOCYTE (%) 8.1 % (3-12); MONOCYTE COUNT 0.3 K/uL (0-0.8); NEUTROPHIL (%) 78.4 % (45-76); NEUTROPHIL COUNT 2.6 K/uL (1.8-6.4); PLAT.SUFFICIENCY DECREASED; RBC DIS.WIDTH-CV 15.7 % (11.8-14.6); RBC DIS.WIDTH-SD 62.3 % (39-53); RED BLOOD COUNT 2.47 M/uL (4.00-5.50); WHITE BLOOD COUNT 3.3 K/uL (4.1-10.2)
[2017-06-18 05:43] LABS: PLATELET COUNT 57 K/uL (156-360)
[2017-06-19] VITALS (23 sets, daily range): BP systolic 73–124; BP diastolic 49–72
[2017-06-19 06:01] LABS: CHLORIDE 117 MEQ/L (99-109); CREATININE 0.9 MG/DL (0.6-1.3); GFR ESTIMATE (CALCULATED) > 59 mL/min/ (58.99-99999); GLUCOSE 102 mg/dL (70-99); POTASSIUM 3.6 MEQ/L (3.7-5.4); SODIUM 143 MEQ/L (136-147); UREA NITROGEN (BUN) 15 mg/dL (9-23)
[2017-06-19 09:16] LABS: ALBUMIN 2.3 G/DL (3.2-4.8); ALKALINE PHOSPHATASE 122 IU/L (3-129); ALT (GPT) 13 IU/L (3-49); AST (GOT) 20 IU/L (2-34); DIRECT BILIRUBIN 0.3 mg/dL (0.0-0.3); TOTAL BILIRUBIN 0.7 MG/DL (0.0-1.0); TOTAL PROTEIN 5.6 G/DL (6.4-8.3)
[2017-06-19 11:11] LABS: BASOPHIL (%) 0.7 % (0-1); EOSINOPHIL (%) 1.8 % (0-5); EOSINOPHIL COUNT 0.1 K/uL (0-0.3); HEMATOCRIT 24.9 % (38.0-50.0); HEMOGLOBIN 7.8 G/DL (12.5-16.6); IMMATURE GRANULOCYTE (%) 0.4 % (0.0-0.7); LYMPHOCYTE (%) 19.7 % (15-42); LYMPHOCYTE COUNT 0.6 K/uL (1.0-2.8); MCH 34.1 PG (29.0-34.0); MCHC 31.3 G/DL (30.0-36.0); MCV 108.7 FL (86-99); MONOCYTE COUNT 0.3 K/uL (0-0.8); NEUTROPHIL (%) 68.4 % (45-76); NEUTROPHIL COUNT 1.9 K/uL (1.8-6.4); PLATELET COUNT 56 K/uL (156-360); RBC DIS.WIDTH-CV 15.6 % (11.8-14.6); RBC DIS.WIDTH-SD 61.8 % (39-53); RED BLOOD COUNT 2.29 M/uL (4.00-5.50); WHITE BLOOD COUNT 2.8 K/uL (4.1-10.2)
[2017-06-20] VITALS (19 sets, daily range): BP systolic 76–104; BP diastolic 49–74
[2017-06-20 06:05] LABS: BASOPHIL (%) 0.8 % (0-1); EOSINOPHIL (%) 1.7 % (0-5); HEMOGLOBIN 8.1 G/DL (12.5-16.6); IMMATURE GRANULOCYTE (%) 0.4 % (0.0-0.7); LYMPHOCYTE (%) 22.3 % (15-42); LYMPHOCYTE COUNT 0.5 K/uL (1.0-2.8); MCH 34.2 PG (29.0-34.0); MCHC 31.2 G/DL (30.0-36.0); MCV 109.7 FL (86-99); MONOCYTE (%) 10.7 % (3-12); MONOCYTE COUNT 0.3 K/uL (0-0.8); NEUTROPHIL (%) 64.1 % (45-76); NEUTROPHIL COUNT 1.6 K/uL (1.8-6.4); PLATELET COUNT 57 K/uL (156-360); RBC DIS.WIDTH-CV 15.7 % (11.8-14.6); RBC DIS.WIDTH-SD 62.2 % (39-53); RED BLOOD COUNT 2.37 M/uL (4.00-5.50); WHITE BLOOD COUNT 2.4 K/uL (4.1-10.2)
[2017-06-20 06:29] LABS: CHLORIDE 114 MEQ/L (99-109); CREATININE 0.9 MG/DL (0.6-1.3); GFR ESTIMATE (CALCULATED) > 59 mL/min/ (58.99-99999); GLUCOSE 81 mg/dL (70-99); POTASSIUM 3.9 MEQ/L (3.7-5.4); SODIUM 143 MEQ/L (136-147); UREA NITROGEN (BUN) 14 mg/dL (9-23)
[2017-06-20 15:14] LABS: INTER. NORMALIZED RATIO 1.3
[2017-06-20 15:17] LABS: PTT 32.1 SEC (25-37)
[2017-06-20 15:56] LABS: FOLIC ACID (FOLATE) 9.2 NG/ML (5.0-22.0)
[2017-06-20 16:05] LABS: THYROTROPIN (TSH) 0.39 MIU/L (0.4-5.5)
[2017-06-21] VITALS (9 sets, daily range): BP systolic 0–95; BP diastolic 0–70
[2017-06-21 05:22] LABS: BASOPHIL (%) 0.9 % (0-1); EOSINOPHIL (%) 1.3 % (0-5); HEMATOCRIT 25.2 % (38.0-50.0); HEMOGLOBIN 7.7 G/DL (12.5-16.6); IMMATURE GRANULOCYTE (%) 0.4 % (0.0-0.7); LYMPHOCYTE (%) 24.4 % (15-42); LYMPHOCYTE COUNT 0.6 K/uL (1.0-2.8); MCH 33.2 PG (29.0-34.0); MCHC 30.6 G/DL (30.0-36.0); MCV 108.6 FL (86-99); MONOCYTE COUNT 0.2 K/uL (0-0.8); NEUTROPHIL COUNT 1.5 K/uL (1.8-6.4); PLATELET COUNT 52 K/uL (156-360); RBC DIS.WIDTH-CV 15.6 % (11.8-14.6); RBC DIS.WIDTH-SD 61.6 % (39-53); RED BLOOD COUNT 2.32 M/uL (4.00-5.50); WHITE BLOOD COUNT 2.3 K/uL (4.1-10.2)
[2017-06-21 05:47] LABS: CHLORIDE 114 MEQ/L (99-109); GFR ESTIMATE (CALCULATED) > 59 mL/min/ (58.99-99999); GLUCOSE 82 mg/dL (70-99); POTASSIUM 3.9 MEQ/L (3.7-5.4); SODIUM 141 MEQ/L (136-147); UREA NITROGEN (BUN) 14 mg/dL (9-23)
[2017-06-21 10:56] LABS: HEPATITIS B SURFACE ANTIGEN Nonreactive
[2017-06-21 10:58] LABS: ANTI-HEPATITIS A VIRUS (IGM) Nonreactive; ANTI-HEPATITIS B CORE (IGM) Nonreactive
[2017-06-21 11:27] LABS: HEPATITIS C ANTIBODY EQUIVOCAL
[2017-06-22 00:11] VITALS: BP 105/61
[2017-06-22 07:00] LABS: BASOPHIL (%) 0.6 % (0-1); EOSINOPHIL (%) 0.6 % (0-5); HEMATOCRIT 28.3 % (38.0-50.0); HEMOGLOBIN 8.6 G/DL (12.5-16.6); IMMATURE GRANULOCYTE (%) 0.6 % (0.0-0.7); LYMPHOCYTE (%) 21.5 % (15-42); LYMPHOCYTE COUNT 0.8 K/uL (1.0-2.8); MCH 33.1 PG (29.0-34.0); MCHC 30.4 G/DL (30.0-36.0); MCV 108.8 FL (86-99); MONOCYTE (%) 6.3 % (3-12); MONOCYTE COUNT 0.2 K/uL (0-0.8); NEUTROPHIL (%) 70.4 % (45-76); NEUTROPHIL COUNT 2.5 K/uL (1.8-6.4); PLATELET COUNT 61 K/uL (156-360); RBC DIS.WIDTH-CV 15.5 % (11.8-14.6); WHITE BLOOD COUNT 3.5 K/uL (4.1-10.2)
[2017-06-22 07:29] LABS: CHLORIDE 114 MEQ/L (99-109); CREATININE 0.9 MG/DL (0.6-1.3); GFR ESTIMATE (CALCULATED) > 59 mL/min/ (58.99-99999); GLUCOSE 96 mg/dL (70-99); POTASSIUM 3.6 MEQ/L (3.7-5.4); SODIUM 142 MEQ/L (136-147); UREA NITROGEN (BUN) 15 mg/dL (9-23)
[2017-06-22 08:02] VITALS: BP 131/60
[2017-06-22 08:15] LABS: IRON 97 MCG/DL (35-150); TRANSFERRIN (TIBC) 174.5 mg/dL (215-380); TRANSFERRIN SATUR. 56 % (20-55)
[2017-06-22 11:49] VITALS: BP 84/65
[2017-06-22 15:49] VITALS: BP 90/64
[2017-06-22] MEDS ORDERED: MIDODRINE HCL5 MG PO (16:30)
[2017-06-22 16:53] LABS: HCV RNA (IU/mL) <15 IU/mL (())
[2017-06-23 11:21] LABS: HCV RNA (LOG IU/mL) <1.18 (())
== END 2017-06-22 17:45 | disposition home or self-care (01) | DRG 871 ==
LOC: EME 09:48 → EDOF 19:15 → 4WEST 19:15 → 4EAST 19:15 → ENRESERV 19:19 → 4EAST 21:12 → ENRESERV 23:09 → 4WEST 23:12 → ENRESERV 06-20 18:45 → 5EAST 06-21 17:14
PROVIDERS: Emergency Medicine; Family Medicine Sports Medicine; Internal Medicine; Internal Medicine Critical Care Medicine; Nurse Practitioner Family; Surgery
DX: A41.9 Sepsis, unspecified organism (principal); R65.21 Severe sepsis with septic shock; N13.6 Pyonephrosis; B96.89 Other specified bacterial agents as the cause of diseases classified elsewhere; I95.89 Other hypotension; N17.9 Acute kidney failure, unspecified; I48.2 Chronic atrial fibrillation; I48.0 Paroxysmal atrial fibrillation; D61.818 Other pancytopenia; I12.9 Hypertensive chronic kidney disease with stage 1 through stage 4 chronic kidney disease, or unspecified chronic kidney disease; N18.9 Chronic kidney disease, unspecified; E11.22 Type 2 diabetes mellitus with diabetic chronic kidney disease; E87.6 Hypokalemia; E86.0 Dehydration; R31.0 Gross hematuria; D53.9 Nutritional anemia, unspecified; K76.6 Portal hypertension; I25.10 Atherosclerotic heart disease of native coronary artery without angina pectoris; N20.0 Calculus of kidney; K74.60 Unspecified cirrhosis of liver; E78.5 Hyperlipidemia, unspecified; K21.9 Gastro-esophageal reflux disease without esophagitis; M81.0 Age-related osteoporosis without current pathological fracture; M19.90 Unspecified osteoarthritis, unspecified site; E55.9 Vitamin D deficiency, unspecified; N32.0 Bladder-neck obstruction; N40.0 Benign prostatic hyperplasia without lower urinary tract symptoms; D50.9 Iron deficiency anemia, unspecified; K52.9 Noninfective gastroenteritis and colitis, unspecified; G89.29 Other chronic pain; M54.9 Dorsalgia, unspecified; E66.9 Obesity, unspecified; Z68.27 Body mass index [BMI] 27.0-27.9, adult; B19.20 Unspecified viral hepatitis C without hepatic coma; F32.9 Major depressive disorder, single episode, unspecified; Z98.84 Bariatric surgery status; Z95.0 Presence of cardiac pacemaker; Z87.891 Personal history of nicotine dependence; Z79.83 Long term (current) use of bisphosphonates
CPT/HCPCS: 36600; 70450; 74176; 76705; 80048; 80048 91; 80053; 80074; 80076; 81003; 82140; 82533 91; 82607; 82746; 82803; 82948; 83090 90; 83540; 83605; 83921 90; 84439; 84443; 84466; 85025; 85027; 85610; 85730; 87040; 87077; 87086; 87186; 87522 90; 87536; 87641; 93005; 97530 GO; 97530 GP; 99281; 99285; J0696; J1650; J1885; J7030; J7040; J7120

== ENCOUNTER 2017-10-11 15:49 | Inpatient (IN) | payer OTHER, MEDICARE ==
[~2017-10-11] VITALS: Ht 177.8 cm; Wt 80.0 kg
[~2017-10-11 15:49] MED LIST changes: +FOSAMAX70 MG PO; +FUROSEMIDE20 MG PO; +KEFLEX500 MG PO; +MIDODRINE HCL5 MG PO; +PROMETHAZINE HC25 M1 PO; +PROTONIX20 MG PO
[2017-10-11 16:47] LABS: HEMATOCRIT 23.6 % (38.0-50.0); HEMOGLOBIN 7.5 G/DL (12.5-16.6); MCH 33.2 PG (29.0-34.0); MCHC 31.8 G/DL (30.0-36.0); MCV 104.4 FL (86-99); PLATELET COUNT 63 K/uL (156-360); RBC DIS.WIDTH-CV 16.4 % (11.8-14.6); RBC DIS.WIDTH-SD 62.1 % (39-53); RED BLOOD COUNT 2.26 M/uL (4.00-5.50); WHITE BLOOD COUNT 4.1 K/uL (4.1-10.2)
[2017-10-11 16:56] LABS: CHLORIDE 119 mEq/L (99-109); POTASSIUM 2.8 mEq/L (3.7-5.4); SODIUM 144 mEq/L (136-147)
[2017-10-11 16:58] LABS: GLUCOSE 101 mg/dL (70-99)
[2017-10-11 17:02] LABS: CREATININE 1.1 mg/dL (0.6-1.3); GFR ESTIMATE (CALCULATED) > 59 mL/min/ (58.99-99999)
[2017-10-11 17:03] LABS: UREA NITROGEN (BUN) 20 mg/dL (9-23)
[2017-10-11 17:08] LABS: TROP-I INTERPRETATION NEGATIVE; TROPONIN-I 0.02 ng/mL (0.0-0.30)
[2017-10-11] MEDS ORDERED: LASIX20 MG PO (19:16)
[2017-10-11] MEDS ORDERED: K-DUR20 MEQ PO (19:17)
[2017-10-11 21:00] VITALS: BP 80/56
[2017-10-11 21:01] LABS: APPEARANCE CLOUDY ((CLEAR)); BILIRUBIN NEGATIVE; BLOOD MODERATE; COLOR YELLOW ((YELLOW)); GLUCOSE (STRIP) NEGATIVE; KETONES 5; LEUKOCYTES MODERATE; NITRITE POSITIVE; PROTEIN (STRIP) 30; SPECIFIC GRAVITY 1.015 (1.000-1.030)
[2017-10-11 21:19] VITALS: BP 88/57
[2017-10-11 21:25] LABS: BACTERIA 3+ /HPF; EPITHELIAL CELLS 1+ /HPF; MUCUS TRACE /LPF; UCUL ADDED? YES; WHITE BLOOD CELLS TNTC /HPF (0-5)
[2017-10-11 21:26] LABS: HYALINE CASTS 0-5 /LPF
[2017-10-11 22:58] VITALS: BP 86/65
[2017-10-11 23:46] VITALS: BP 83/55
[2017-10-12] VITALS (9 sets, daily range): BP systolic 72–130; BP diastolic 45–66
[2017-10-12 05:35] LABS: HEMATOCRIT 27.7 % (38.0-50.0); HEMOGLOBIN 8.5 G/DL (12.5-16.6); MCH 32.1 PG (29.0-34.0); MCHC 30.7 G/DL (30.0-36.0); MCV 104.5 FL (86-99); PLATELET COUNT 57 K/uL (156-360); RBC DIS.WIDTH-CV 17.9 % (11.8-14.6); RBC DIS.WIDTH-SD 67.9 % (39-53); RED BLOOD COUNT 2.65 M/uL (4.00-5.50); WHITE BLOOD COUNT 3.4 K/uL (4.1-10.2)
[2017-10-12 06:02] LABS: CHLORIDE 118 MEQ/L (99-109); GFR ESTIMATE (CALCULATED) > 59 mL/min/ (58.99-99999); SODIUM 144 MEQ/L (136-147); UREA NITROGEN (BUN) 19 mg/dL (9-23)
[2017-10-12 06:03] LABS: GLUCOSE 70 mg/dL (70-99)
[2017-10-13 03:41] VITALS: BP 87/55
[2017-10-13 05:15] LABS: BASOPHIL (%) 0.4 % (0-1); EOSINOPHIL (%) 1.1 % (0-5); EOSINOPHIL COUNT 0.1 K/uL (0-0.3); HEMATOCRIT 26.2 % (38.0-50.0); HEMOGLOBIN 8.1 G/DL (12.5-16.6); IMMATURE GRANULOCYTE (%) 0.2 % (0.0-0.7); LYMPHOCYTE COUNT 0.9 K/uL (1.0-2.8); MCH 32.4 PG (29.0-34.0); MCHC 30.9 G/DL (30.0-36.0); MCV 104.8 FL (86-99); MONOCYTE (%) 5.4 % (3-12); MONOCYTE COUNT 0.2 K/uL (0-0.8); NEUTROPHIL (%) 73.9 % (45-76); NEUTROPHIL COUNT 3.3 K/uL (1.8-6.4); PLATELET COUNT 58 K/uL (156-360); RBC DIS.WIDTH-SD 68.7 % (39-53); WHITE BLOOD COUNT 4.5 K/uL (4.1-10.2)
[2017-10-13 05:55] LABS: CHLORIDE 119 MEQ/L (99-109); GLUCOSE 73 mg/dL (70-99); POTASSIUM 4.1 MEQ/L (3.7-5.4); SODIUM 142 MEQ/L (136-147); UREA NITROGEN (BUN) 17 mg/dL (9-23)
[2017-10-13 06:48] LABS: CREATININE 1.1 MG/DL (0.6-1.3); GFR ESTIMATE (CALCULATED) > 59 mL/min/ (58.99-99999)
[2017-10-13 07:33] VITALS: BP 87/57
[2017-10-13 11:57] VITALS: BP 101/66
[2017-10-13 16:11] VITALS: BP 85/59
[2017-10-13 19:52] VITALS: BP 92/66
[2017-10-13 23:25] VITALS: BP 96/54
[2017-10-14 16:21] VITALS: BP 101/68
[2017-10-14 19:26] VITALS: BP 101/57
[2017-10-14] MEDS ORDERED: MIDODRINE HCL5 MG PO (20:58)
[2017-10-14] MEDS ORDERED: ALDACTONE25 MG PO (20:59)
[2017-10-14] MEDS ORDERED: CEFTIN500 MG PO (21:12)
[2017-10-14] MEDS ORDERED: DIALYVITE V5000 UNIT PO (21:19)
[2017-10-14 23:30] VITALS: BP 82/53
[2017-10-15 03:47] VITALS: BP 91/62
[2017-10-15 05:29] LABS: BASOPHIL (%) 0.7 % (0-1); EOSINOPHIL (%) 2.1 % (0-5); EOSINOPHIL COUNT 0.1 K/uL (0-0.3); HEMATOCRIT 27.3 % (38.0-50.0); HEMOGLOBIN 8.2 G/DL (12.5-16.6); IMMATURE GRANULOCYTE (%) 0.3 % (0.0-0.7); LYMPHOCYTE (%) 28.6 % (15-42); LYMPHOCYTE COUNT 0.8 K/uL (1.0-2.8); MCH 31.5 PG (29.0-34.0); MONOCYTE (%) 5.2 % (3-12); MONOCYTE COUNT 0.2 K/uL (0-0.8); NEUTROPHIL (%) 63.1 % (45-76); NEUTROPHIL COUNT 1.8 K/uL (1.8-6.4); PLATELET COUNT 58 K/uL (156-360); RBC DIS.WIDTH-CV 17.3 % (11.8-14.6); RBC DIS.WIDTH-SD 66.8 % (39-53); WHITE BLOOD COUNT 2.9 K/uL (4.1-10.2)
[2017-10-15 06:40] LABS: CHLORIDE 118 MEQ/L (99-109); CREATININE 1.1 MG/DL (0.6-1.3); GFR ESTIMATE (CALCULATED) > 59 mL/min/ (58.99-99999); GLUCOSE 79 mg/dL (70-99); POTASSIUM 3.9 MEQ/L (3.7-5.4); SODIUM 141 MEQ/L (136-147); UREA NITROGEN (BUN) 16 mg/dL (9-23)
[2017-10-15 08:08] VITALS: BP 85/63
== END 2017-10-15 11:08 | disposition home or self-care (01) | DRG 315 ==
LOC: EME 15:49 → ENRESERV 19:29 → 4SOUTH 19:29 → EDOF 19:29 → ENRESERV 20:23 → 4SOUTH 22:18
PROVIDERS: Emergency Medicine; Family Medicine Sports Medicine
PROC: 30233N1 Transfusion of Nonautologous Red Blood Cells into Peripheral Vein, Percutaneous Approach (ICD-10-PCS; principal; 2017-10-11)
DX: I95.89 Other hypotension (principal); D61.818 Other pancytopenia; E86.0 Dehydration; E87.6 Hypokalemia; N30.91 Cystitis, unspecified with hematuria; B96.20 Unspecified Escherichia coli [E. coli] as the cause of diseases classified elsewhere; I48.2 Chronic atrial fibrillation; I12.9 Hypertensive chronic kidney disease with stage 1 through stage 4 chronic kidney disease, or unspecified chronic kidney disease; E11.22 Type 2 diabetes mellitus with diabetic chronic kidney disease; N18.9 Chronic kidney disease, unspecified; B19.20 Unspecified viral hepatitis C without hepatic coma; K90.9 Intestinal malabsorption, unspecified; I25.10 Atherosclerotic heart disease of native coronary artery without angina pectoris; K74.60 Unspecified cirrhosis of liver; E78.5 Hyperlipidemia, unspecified; K21.9 Gastro-esophageal reflux disease without esophagitis; E55.9 Vitamin D deficiency, unspecified; M81.0 Age-related osteoporosis without current pathological fracture; M19.90 Unspecified osteoarthritis, unspecified site; F32.9 Major depressive disorder, single episode, unspecified; Z87.891 Personal history of nicotine dependence; Z79.83 Long term (current) use of bisphosphonates; Z98.84 Bariatric surgery status; Z95.0 Presence of cardiac pacemaker; Z88.0 Allergy status to penicillin
CPT/HCPCS: 71045; 76770; 80048; 81003; 82306; 84484; 85025; 85027; 86850; 86900; 86901; 86920; 87077; 87086; 87186; 93005; 99281; 99285; J0696; J1650; J3010; J3480; J7030; J7040; P9016